=== PATIENT | female | born 1960 | race Caucasian/White ===

== ENCOUNTER 2024-12-15 13:31 | Observation (INO) | payer MEDICARE ==
--- NOTE | 2024-12-15 14:16 | ED ---
General Adult HPI - General Chief complaint: Arrhythmia/Palpitations Stated complaint: Abn EKG Time Seen by Provider: 12/15/24 13:50 Source: patient, RN notes reviewed, old records reviewed Mode of arrival: ambulatory Limitations: no limitations - History of Present Illness Initial comments: This is a 64-year-old female who presents to the emergency department stating for the last 3 years she has been having palpitations but no one's been able to ever catch and tell her what it is. Patient was at the doctor's office today and they noticed she was in atrial fibrillation at about 140 beats a minute so they sent to the emergency department. Patient states she can feel it when it occurs she denies any chest pain. Patient states occasionally she is short of breath. Patient denies any recent fever chills or cough. Patient denies any abdominal pain. Patient [place] any nausea vomiting diarrhea - Related Data Home Medications Medication Instructions Recorded Confirmed Amitriptyline HCl [Elavil] 25 mg PO HS PRN 12/15/24 12/15/24 Otc Diet Pill (Unknown) 1 dose PO AC-BID 12/15/24 12/15/24 Allergies Allergy/AdvReac Type Severity Reaction Status Date / Time No Known Allergies Allergy Verified 12/15/24 14:15 Review of Systems ROS Statement: Those systems with pertinent positive or pertinent negative responses have been documented in the HPI. ROS Other: All systems not noted in ROS Statement are negative. Past Medical History Past Medical History: No Reported History History of Any Multi-Drug Resistant Organisms: None Reported Past Surgical History: Breast Surgery, Orthopedic Surgery Additional Past Surgical History / Comment(s): hip, left lumpectomy Past Psychological History: No Psychological Hx Reported Smoking Status: Never smoker Past Alcohol Use History: Rare Past Drug Use History: Marijuana General Exam - General Exam Comments Initial Comments: GENERAL: Patient is well-developed and well-nourished. Patient is nontoxic and well- hydrated and is in mild distress. ENT: Neck is soft and supple. No significant lymphadenopathy is noted. Oropharynx is clear. Moist mucous membranes. Neck has full range of motion without eliciting any pain. EYES: The sclera were anicteric and conjunctiva were pink and moist. Extraocular movements were intact and pupils were equal round and reactive to light. Eyelids were unremarkable. PULMONARY: Unlabored respirations. Good breath sounds bilaterally. No audible rales rhonchi or wheezing was noted. CARDIOVASCULAR: Tachycardic at about 160 bpm and it is irregular ABDOMEN: Soft and nontender with normal bowel sounds. SKIN: Skin is clear with no lesions or rashes and otherwise unremarkable. NEUROLOGIC: Patient is alert and oriented x3. Cranial nerves II through XII are grossly intact. Motor and sensory are also intact. Normal speech, volume and content. Symmetrical smile. MUSCULOSKELETAL: Normal extremities with adequate strength and full range of motion. No lower extremity swelling or edema. No calf tenderness. LYMPHATICS: No significant lymphadenopathy is noted PSYCHIATRIC: Normal psychiatric evaluation. Limitations: no limitations Course Vital Signs 12/15/24 12/15/24 12/15/24 13:39 14:31 14:38 Temperature 97.6 F Pulse Rate 66 151 H 156 H Respiratory 18 20 Rate Blood Pressure 107/70 103/77 O2 Sat by Pulse 98 98 Oximetry 12/15/24 12/15/24 12/15/24 15:35 15:59 17:04 Temperature Pulse Rate 131 H 132 H 135 H Respiratory 20 20 20 Rate Blood Pressure 122/70 120/78 O2 Sat by Pulse 98 98 98 Oximetry Medical Decision Making - Medical Decision Making EKG is interpreted by myself. EKG shows a atrial fibrillation at a rate of 147 bpm [place] was 156 QRS of 72 QT interval is 294 QTc is 378. Patient's EKG shows no ST segment elevation or depression. Was pt. sent in by a medical professional or institution (DEBBI Griffith, [employer] INSULATION HELPER, urgent care, hospital, or alf...) When possible be specific @ -No Did you speak to anyone other than the patient for history (EMS, parent, family, police, friend...)? What history was obtained from this source @ -No Did you review nursing and triage notes (agree or disagree)? Why? @ -I reviewed and agree with nursing and triage notes Were old charts reviewed (outside hosp., previous admission, EMS record, old EKG, old radiological studies, urgent care reports/EKG's, alf records)? Report findings @ -No old charts were reviewed Differential Diagnosis? @ -Differential Palpitations Ventricular arrhythmias, atrial arrhythmias, myocardial infarction, anemia, thyrotoxicosis, electrolyte imbalance, hypokalemia, pulmonary embolism, pulmonary disease, drugs, alcohol, anxiety, stress.... This is not meant to be an all-inclusive list. EKG interpreted by me (3pts min.). @ -As above X-rays interpreted by me (1pt min.). @ -Chest x-ray shows no acute CT interpreted by me (1pt min.). @ -None done U/S interpreted by me (1pt. min.). @ -None done What testing was considered but not performed or refused? (CT, X-rays, U/S, labs)? Why? @ -None What meds were considered but not given or refused? Why? @ -None Did you discuss the management of the patient with other professionals (professionals i.e. , PA, CELLULOSE INSULATION HELPER, lab, RT, psych nurse, licensed clinical social worker, driller and broacher, teacher, environmental health officer, wrapper caser)? Give summary @ -I spoke with [facility] they agreed to admit the patient admit the patient recommending orders Was smoking cessation discussed for >3mins.? @ -No Was critical care preformed (if so, how long)? @ -35 minutes Were there social determinants of health that impacted care today? How? (Homel essness, low income, unemployed, alcoholism, drug addiction, transportation, low edu. Level, literacy, decrease access to med. care, usp, rehab)? @ -No Was there de-escalation of care discussed even if they declined (Discuss DNR or withdrawal of care, Hospice)? DNR status @ -No What co-morbidities impacted this encounter? (DM, HTN, Smoking, COPD, CAD, Cancer, CVA, ARF, Chemo, Hep., AIDS, mental health diagnosis, sleep apnea, morbid obesity)? @ -None Was patient admitted / discharged? Hospital course, mention meds given and route, prescriptions, significant lab abnormalities, going to OR and other pertinent info. @ -Patient was started on Cardizem after Cardizem bolus. Patient also was given heparin after heparin bolus. Patient will be admitted to [facility] with a consult to cardiology Undiagnosed new problem with uncertain prognosis? @ -No Drug Therapy requiring intensive monitoring for toxicity (Heparin, Nitro, Insulin, Cardizem)? @ -No Were any procedures done? @ -No Diagnosis/symptom? @ -A-fib with rapid ventricular response Acute, or Chronic, or Acute on Chronic? @ -Acute Uncomplicated (without systemic symptoms) or Complicated (systemic symptoms)? @ -Complicated Side effects of treatment? @ -No Exacerbation, Progression, or Severe Exacerbation? @ -No Poses a threat to life or bodily function? How? (Chest pain, [place], [place], pneumonia, PE, COPD, DKA, ARF, appy, cholecystitis, CVA, Diverticulitis, Homicidal, Suicidal, threat to staff... and all critical care pts) @ -Yes this could lead to poor perfusion and endorgan dysfunction or possible stroke - Lab Data Result diagrams: 12/15/24 14:13 12/15/24 14:13 Lab Results 12/15/24 12/15/24 12/15/24 Range/Units 14:13 14:13 14:13 WBC 8.53 (4.50-10.00) 10*3/uL RBC 4.57 (4.10-5.20) 10*6/uL Hgb 13.8 (12.0-15.0) g/dL Hct 40.7 (37.2-46.3) % MCV 89.1 (80.0-97.0) fL MCH 30.2 (27.0-32.0) pg MCHC 33.9 (32.0-37.0) g/dL Plt Count 328 (140-440) 10*3/uL MPV 9.5 (9.5-12.2) fL Immature Gran % (Auto) 0.2 % Neutrophils % 59.9 % Lymphocytes % 28.6 % Monocytes % 8.1 % Eosinophils % 1.9 % Basophils % 1.3 % Immature Gran # 0.02 (0.00-0.04) 10*3/uL Neutrophils # 5.11 (1.80-7.70) 10*3/uL Lymphocytes # 2.44 (0.90-5.00) 10*3/uL Monocytes # 0.69 (0.20-1.00) 10*3/uL Eosinophils # 0.16 (0.04-0.35) 10*3/uL Basophils # 0.11 H (0.00-0.10) 10*3/uL PT 10.1 (10.0-12.5) sec INR 0.9 (<1.2) APTT 22.7 (22.0-30.0) sec Sodium 141 (137-145) mmol/L Potassium 4.1 (3.5-5.1) mmol/L Chloride 103 (98-107) mmol/L Carbon Dioxide 26 (22-30) mmol/L Anion Gap 12 mmol/L BUN 19 H (7-17) mg/dL Creatinine 0.94 (0.52-1.04) mg/dL Est GFR (CKD-EPI)AfAm 74 (>60 ml/min/1.73 sqM) Est GFR (CKD-EPI)NonAf 64 (>60 ml/min/1.73 sqM) Glucose 123 H (74-99) mg/dL Calcium 10.7 H (8.4-10.2) mg/dL Magnesium 2.2 (1.6-2.3) mg/dL Total Bilirubin 0.5 (0.2-1.3) mg/dL AST 23 (14-36) U/L ALT 25 (4-34) U/L Alkaline Phosphatase 116 (38-126) U/L Troponin I (0.000-0.034) ng/mL Total Protein 8.2 (6.3-8.2) g/dL Albumin 4.8 (3.5-5.0) g/dL TSH 1.790 (0.465-4.680) mIU/L 05/01/04 Range/Units 14:13 WBC (4.50-10.00) 10*3/uL RBC (4.10-5.20) 10*6/uL Hgb (12.0-15.0) g/dL Hct (37.2-46.3) % MCV (80.0-97.0) fL MCH (27.0-32.0) pg MCHC (32.0-37.0) g/dL Plt Count (140-440) 10*3/uL MPV (9.5-12.2) fL Immature Gran % (Auto) % Neutrophils % % Lymphocytes % % Monocytes % % Eosinophils % % Basophils % % Immature Gran # (0.00-0.04) 10*3/uL Neutrophils # (1.80-7.70) 10*3/uL Lymphocytes # (0.90-5.00) 10*3/uL Monocytes # (0.20-1.00) 10*3/uL Eosinophils # (0.04-0.35) 10*3/uL Basophils # (0.00-0.10) 10*3/uL PT (10.0-12.5) sec INR (<1.2) APTT (22.0-30.0) sec Sodium (137-145) mmol/L Potassium (3.5-5.1) mmol/L Chloride (98-107) mmol/L Carbon Dioxide (22-30) mmol/L Anion Gap mmol/L BUN (7-17) mg/dL Creatinine (0.52-1.04) mg/dL Est GFR (CKD-EPI)AfAm (>60 ml/min/1.73 sqM) Est GFR (CKD-EPI)NonAf (>60 ml/min/1.73 sqM) Glucose (74-99) mg/dL Calcium (8.4-10.2) mg/dL Magnesium (1.6-2.3) mg/dL Total Bilirubin (0.2-1.3) mg/dL AST (14-36) U/L ALT (4-34) U/L Alkaline Phosphatase (38-126) U/L Troponin I <0.012 (0.000-0.034) ng/mL Total Protein (6.3-8.2) g/dL Albumin (3.5-5.0) g/dL TSH (0.465-4.680) mIU/L Disposition Clinical Impression: Atrial fibrillation with RVR Disposition: ADMITTED IP TO THIS HOSP Referrals: Tirso Amador MD [Primary Care Provider] - 1-2 days Time of Disposition: 17:31
[2024-12-15 14:25] LABS: Basophils # (A) 0.11 10*3/uL (0.00-0.10); Basophils % (A) 1.3 %; Eosinophils # (A) 0.16 10*3/uL (0.04-0.35); Eosinophils % (A) 1.9 %; HCT 40.7 % (37.2-46.3); HGB 13.8 g/dL (12.0-15.0); Lymphocytes # (A) 2.44 10*3/uL (0.90-5.00); Lymphocytes % (A) 28.6 %; MCH 30.2 pg (27.0-32.0); MCHC 33.9 g/dL (32.0-37.0); MCV 89.1 fL (80.0-97.0); Mean Platelet Volume 9.5 fL (9.5-12.2); Monocytes # (A) 0.69 10*3/uL (0.20-1.00); Monocytes % (A) 8.1 %; Neutrophils # (A) 5.11 10*3/uL (1.80-7.70); Neutrophils % (A) 59.9 %; Platelet Count 328 10*3/uL (140-440); RBC 4.57 10*6/uL (4.10-5.20); RDW 14.3 % (11.5-14.5); WBC 8.53 10*3/uL (4.50-10.00)
[2024-12-15] MEDS: SODIUM CHLORIDE 0.9% 500 ML 500 ML IV STA (14:27)
[2024-12-15] MEDS: HEPARIN SOD,PORK IN 0.45% NACL 25,000 UNIT in 0.45% NACL 1 250ML.BAG IV SCH (14:27)
[2024-12-15] MEDS: DILTIAZEM 5 MG/ML 5 ML VIAL IVP STA (14:29)
[2024-12-15] MEDS: DILTIAZEM 125 MG in DEXTROSE 5% IN WATER 100 ML IV SCH (14:29)
[2024-12-15 14:37] LABS: INR 0.9 (<1.2); Prothrombin Time 10.1 sec (10.0-12.5)
[2024-12-15 14:40] LABS: ALT 25 U/L (4-34); AST 23 U/L (14-36); African American GFR (CKD) 74 (>60 ml/min/1.73 sqM); Albumin 4.8 g/dL (3.5-5.0); Alkaline Phosphatase 116 U/L (38-126); Anion Gap 12 mmol/L; Blood Urea Nitrogen 19 mg/dL (7-17); Calcium 10.7 mg/dL (8.4-10.2); Carbon Dioxide 26 mmol/L (22-30); Chloride 103 mmol/L (98-107); Glucose 123 mg/dL (74-99); Magnesium 2.2 mg/dL (1.6-2.3); Non-African American GFR(CKD) 64 (>60 ml/min/1.73 sqM); Potassium 4.1 mmol/L (3.5-5.1); Sodium 141 mmol/L (137-145); Total Bilirubin 0.5 mg/dL (0.2-1.3); Total Protein 8.2 g/dL (6.3-8.2)
--- NOTE | 2024-12-15 14:42 | XR ---
EXAMINATION TYPE: XR chest 2V DATE OF EXAM: 12/15/2024 2:36 PM COMPARISON: None TECHNIQUE: XR chest 2V Frontal and lateral views of the chest. CLINICAL INDICATION:Female, 64 years old with history of dysrhythmia; FINDINGS: Lungs/Pleura: There is no evidence of pleural effusion, focal consolidation, or pneumothorax. Pulmonary vascularity: Unremarkable. Heart/mediastinum: Cardiomediastinal silhouette is unremarkable. Musculoskeletal: Multiple level degenerative disc disease changes seen throughout the spine. Other findings: Surgical clips within the left anterior chest. IMPRESSION: No acute cardiopulmonary disease/process. [facility], , 12/15/2024 2:40 PM
[2024-12-15 14:44] LABS: Partial Thromboplastin Time 22.7 sec (22.0-30.0)
--- NOTE | 2024-12-15 17:06 | P.HPIM ---
History of Present Illness H&P Date: 12/15/24 Patient is a 64-year-old female with past medical history of palpitations for the past 3 years, she went to her PCPs office and was noted to be in A-fib with RVR with heart rate in 140s, she was sent to the ER. Patient denies any associated shortness of breath, chest pain, fevers, chills, nausea, vomiting, dizziness, lightheadedness, abdominal pain On admission she was afebrile with heart rate in 150s, BP 103/77, satting well on room air. CBC unremarkable, CMP grossly unremarkable, negative troponin, TSH WNL. EKG confirmed A-fib with RVR, nonspecific T wave abnormalities. Patient was started on IV heparin and Cardizem drips. Chest x-ray showed no acute process. Patient will be admitted for further evaluation of A-fib with RVR, cardiology consult, TTE ordered. Pertinent positives and negatives as discussed in HPI, a complete review of systems was performed and all other systems are negative. Patient seen and examined at bedside. Vital signs reviewed General: nontoxic, no distress, appears at stated age Derm: warm, dry Head: atraumatic, normocephalic, symmetric Eyes: EOMI, no lid lag, anicteric sclera, pupils equal round reactive to light ENT: Nose and ears atraumatic Neck: No thyromegaly, supple Mouth: no lip lesion, mucus membranes moist Cardiovascular: Irregular, tachycardic no murmur, no edema Lungs: clear to auscultation bilateral, no rhonchi, no rales, no wheeze, no accessory muscle use Abdominal: soft, nontender to palpation, no guarding, no appreciable organomegaly Ext: no gross muscle atrophy, muscle strength muscle strength 5 out of 5 in all 4 extremities, no contractures Neuro: CN II-XII grossly intact Psych: Alert, oriented, appropriate affect Assessment/Plan: A-fib with RVR, unknown chronicity - Continue IV heparin drip -Continue Cardizem drip, increased to 10 mg/h -Start Lopressor 25 twice daily -Telemetry -Cardiology consulted, appreciate recommendations -TTE ordered and pending I have reviewed the following lead sales consultant notes: ER I have reviewed the results of the following tests: As above I have ordered the following tests: I have discussed the care of this patient with the following independent historian: RN, patient's I have independently interpreted the following test below: As above I have discussed the management of this patient with the following physician: ER physician Dr. Melgar The patient is admitted with an anticipated [greater] than 2 midnight stay as [inpatient/observation] status for evaluation of []. Surrogate decision-maker: CODE STATUS: Full code DVT prophylaxis: Heparin drip Anticipated discharge date: TBD Anticipated discharge place: TBD A total of [] minutes was spent on the care of this complex patient more than 50% of the time was spent in counseling and care coordination. Past Medical History Past Medical History: No Reported History History of Any Multi-Drug Resistant Organisms: None Reported Past Surgical History: Breast Surgery, Orthopedic Surgery Additional Past Surgical History / Comment(s): hip, left lumpectomy Past Psychological History: No Psychological Hx Reported Smoking Status: Never smoker Past Alcohol Use History: Rare Past Drug Use History: Marijuana Medications and Allergies Home Medications Medication Instructions Recorded Confirmed Type Amitriptyline HCl [Elavil] 25 mg PO HS PRN 12/15/24 12/15/24 History Otc Diet Pill (Unknown) 1 dose PO AC-BID 12/15/24 12/15/24 History Allergies Allergy/AdvReac Type Severity Reaction Status Date / Time No Known Allergies Allergy Verified 12/15/24 14:15 Physical Exam Vitals: Vital Signs Temp Pulse Resp BP Pulse Ox 12/15/24 17:04 135 H 20 120/78 98 12/15/24 15:59 132 H 20 122/70 98 12/15/24 15:35 131 H 20 98 12/15/24 14:38 156 H 20 103/77 98 12/15/24 14:31 151 H 12/15/24 13:39 97.6 F 66 18 107/70 98 Intake and Output 12/15/24 12/15/24 12/15/24 06:59 14:59 22:59 Intake Total 12.833 Balance 12.833 Intake: Intake, IV Titration 12.833 Amount Diltiazem 125 mg In 12.833 Dextrose 5% in Water 100 ml @ 5 MG/HR 5 mls/hr IV .Q24H VALERIA Rx#:[id number] Other: Weight 90.537 kg Results CBC & Chem 7: 12/15/24 14:13 12/15/24 14:13 Labs: Abnormal Lab Results - Last 24 Hours (Table) 12/15/24 12/15/24 Range/Units 14:13 14:13 Basophils # 0.11 H (0.00-0.10) 10*3/uL BUN 19 H (7-17) mg/dL Glucose 123 H (74-99) mg/dL Calcium 10.7 H (8.4-10.2) mg/dL
[2024-12-15] MEDS ORDERED: NALOXONE 0.4 MG/ML 1 ML VIAL IV PRN (17:09)
[2024-12-15] MEDS: METOPROLOL TARTRATE 25 MG TAB PO SCH (22:06)
[2024-12-16] MEDS: MELATONIN 5 MG TABLET PO SCH (01:58)
--- NOTE | 2024-12-16 10:22 | CA ---
Transthoracic Echo Report Name: Lashawn Appiah Age: 64 Gender: F : 1960 Exam Date: 12/16/2024 08:15 Exam Location: [place] Echo Ht (in): 70 Wt (lb): 199 Ordering Physician: Kimberli Blas MD Attending/Referring Phys: Certified Nurse Operating Room Jeri Lopez RDCS Procedure CPT: Indications: afib rvr Cardiac Hx: Technical Quality: Good Contrast 1: Total Dose (mL): Contrast 2: Total Dose (mL): MEASUREMENTS (Male / Female) Normal Values 2D ECHO LV Diastolic Diameter PLAX 4.4 cm 4.2 - 5.9 / 3.9 - 5.3 cm LV Systolic Diameter PLAX 3.5 cm IVS Diastolic Thickness 1.3 cm 0.6 - 1.0 / 0.6 - 0.9 cm LVPW Diastolic Thickness 0.7 cm 0.6 - 1.0 / 0.6 - 0.9 cm LV Relative Wall Thickness 0.5 LVOT Diameter 2.0 cm LV Diastolic Volume MOD BP 97.1 cm??? 67 - 155 / 56 - 104 cm??? LV Systolic Volume MOD BP 41.2 cm??? 22 - 58 / 19 - 49 cm??? LV Ejection Fraction MOD BP 57.5 % >= 55 % LV Cardiac Index MOD BP 1678.1 cm???/min???m??? LV Diastolic Volume MOD 4C 97.7 cm??? LV Systolic Volume MOD 4C 40.6 cm??? LV Ejection Fraction MOD 4C 58.5 % LV Cardiac Index MOD 4C 1715.2 cm???/min???m??? LV Diastolic Length 4C 7.2 cm LV Systolic Length 4C 6.0 cm LV Diastolic Volume MOD 2C 91.5 cm??? LV Systolic Volume MOD 2C 38.4 cm??? LV Ejection Fraction MOD 2C 58.0 % LV Cardiac Index MOD 2C 1595.0 cm???/min???m??? LV Diastolic Length 2C 7.6 cm LV Systolic Length 2C 6.6 cm LA Volume 29.5 cm??? 18 - 58 / 22 - 52 cm??? LA Volume Index 13.8 cm???/m??? 16 - 28 cm???/m??? DOPPLER AV Peak Velocity 128.4 cm/s AV Peak Gradient 6.6 mmHg AV Mean Velocity 88.2 cm/s AV Mean Gradient 3.4 mmHg AV Velocity Time Integral 27.9 cm LVOT Peak Velocity 100.1 cm/s LVOT Peak Gradient 4.0 mmHg LVOT Velocity Time Integral 23.4 cm LVOT Stroke Volume 72.2 cm??? LVOT Stroke Volume Index 34.7 ml/m??? LVOT Cardiac Index 2168.5 cm???/min???m??? AV Area Cont Eq vti 2.6 cm??? AV Area Cont Eq pk 2.4 cm??? MV Area PHT 3.2 cm??? Mitral E Point Velocity 67.7 cm/s Mitral A Point Velocity 54.7 cm/s Mitral E to A Ratio 1.2 MV Deceleration Time 236.3 ms TR Peak Velocity 205.8 cm/s TR Peak Gradient 16.9 mmHg PV Peak Velocity 70.3 cm/s PV Peak Gradient 2.0 mmHg FINDINGS Left Ventricle Left ventricular ejection fraction is estimated at 55-60%. Mildly increased septal wall thickness. Normal left ventricular systolic function with no obvious regional wall motion abnormalities. Left ventricular cavity size normal. Right Ventricle Normal right ventricular size and function. Right ventricular systolic pressure within normal limits. Right Atrium Normal right atrial size. Left Atrium Normal left atrial size. Mitral Valve Structurally normal mitral valve. Mild mitral regurgitation. No mitral stenosis. Aortic Valve Trileaflet aortic valve. No aortic valve stenosis or regurgitation. Tricuspid Valve Structurally normal tricuspid valve. Mild tricuspid regurgitation. No tricuspid stenosis. Pulmonic Valve Structurally normal pulmonic valve. Trace pulmonic regurgitation. No pulmonic stenosis. Pericardium No pericardial or pleural effusion. Aorta Normal size aortic root and proximal ascending aorta. CONCLUSIONS Normal LV size and systolic function. Mild mitral and tricuspid regurgitation. No pulmonary hypertension no pericardial effusion Previewed by: Dr. Lulu Ramey MD (Electronically Signed) Final Date: 16 Dec 2024 10:21
[2024-12-16 11:29] VITALS: BP 112/73; PULSE 64; RESP 16; TEMP 97.5
--- NOTE | 2024-12-16 16:02 | P.DS ---
Providers Date of admission: 12/15/24 17:09 Attending physician: Kimberli Blas MD Consults: 12/16/24 13:36 Consult Physician Routine Consulting Provider: Lulu Ramey Consult Reason/Comments: afib rvr Do you want consulting provider notified?: Yes Primary care physician: Tirso Amador MD Hospital Course: Discharge Diagnosis: Paroxysmal A-fib with RVR, now in sinus Hospital Course: Patient is a 64-year-old female with past medical history of palpitations for the past 3 years, she went to her PCPs office and was noted to be in A-fib with RVR with heart rate in 140s, she was sent to the ER. Patient denies any associated shortness of breath, chest pain, fevers, chills, nausea, vomiting, dizziness, lightheadedness, abdominal pain On admission she was afebrile with heart rate in 150s, BP 103/77, satting well on room air. CBC unremarkable, CMP grossly unremarkable, negative troponin, TSH WNL. EKG confirmed A-fib with RVR, nonspecific T wave abnormalities. Patient was started on IV heparin and Cardizem drips. Chest x-ray showed no acute process. Patient will be admitted for further evaluation of A-fib with RVR, TTE ordered. Patient converted to sinus, Cardizem drip stopped, started on metoprolol tartrate 25 twice daily. TTE showed EF of 55 to 60% with no obvious regional wall motion abnormalities, no effusion or pulmonary hypertension. [id number] is 1, no anticoagulation indicated at this time. Patient will be scheduled for appointment with cardiology as outpatient within 2 weeks, follow-up with primary care physician Patient seen and examined at bedside.[] Vital signs reviewed and stable. General: [nontoxic], [no distress], [appears at stated age] Derm: [warm], [dry] Head: [atraumatic], [normocephalic], [symmetric] Eyes: [EOMI], [no lid lag], [anicteric sclera] Mouth: [no lip lesion], [mucus membranes moist] Cardiovascular: [S1S2 reg], [no murmur] Lungs: [CTA bilateral], [no rhonchi, no rales] , [no accessory muscle use] Abdominal: [soft], [ nontender to palpation], [no guarding], [no appreciable organomegaly] Ext: [no gross muscle atrophy], [no edema], [no contractures] Neuro: [ CN II-XI grossly intact], [no focal neuro deficits] Psych: [Alert], [oriented], [appropriate affect] A total of 41 minutes of time were spent preparing this complex discharge summary. Patient was discharged on 12/16/24. Plan - Discharge Summary Discharge Rx Participant: Yes New Discharge Prescriptions: New Metoprolol Tartrate [Lopressor] 25 mg PO BID #60 tab Continue Amitriptyline HCl [Elavil] 25 mg PO HS PRN PRN Reason: Insomnia/Anxiety Otc Diet Pill (Unknown) 1 dose PO AC-BID Discharge Medication List Amitriptyline HCl [Elavil] 25 mg PO HS PRN 12/15/24 [History] Otc Diet Pill (Unknown) 1 dose PO AC-BID 12/15/24 [History] Metoprolol Tartrate [Lopressor] 25 mg PO BID #60 tab 12/16/24 [Rx] Follow up Appointment(s)/Referral(s): Jona Herrera MD [STAFF PHYSICIAN] - 1 Week Tirso Amador MD [Primary Care Provider] - 1-2 days Patient Instructions/Handouts: A-fib (Atrial Fibrillation) (DC) Activity/Diet/Wound Care/Special Instructions: Please, follow-up with your primary care physician and cardiology. Take metoprolol 25 mg twice a day as prescribed. Check your blood pressure regularly, preferably once a day, keep a log of the readings to discuss with your primary care physician and neon light installer. Your echocardiogram results are looking normal. Discharge Disposition: HOME SELF-CARE
[2024-12-16] MEDS ORDERED: MELATONIN 5 MG TABLET PO SCH (21:00)
== END 2024-12-16 16:51 | disposition home or self-care (01) ==
LOC: EC 13:31 → 3SCARD 17:09 → INTOOBSV 17:09 → 3SCARD 21:13
PROVIDERS: ADMIT Student in an Organized Health Care Education/Training Program; ATTEND Student in an Organized Health Care Education/Training Program
DX: I48.0 Paroxysmal atrial fibrillation (principal); Z79.899 Other long term (current) drug therapy
CPT/HCPCS: 96366 ×3; 96368; 96365; 99291; 36415; 93005; 93306; 80053; 83735; 84443; 84484; 85025; 85610; 85730 ×2; 71046; G0378 ×2; J1644 ×2